=== PATIENT | male | born 1950 | race Native Hawaiian/Other Pacific Islander ===

== ENCOUNTER 2017-03-24 19:57 | Outpatient (CLI) | payer OTHER | END 2017-03-24 20:15 | disposition short-term general hospital (02) | LOC: AMB 19:57 | DX: R41.82 Altered mental status, unspecified (principal); W06.XXXA Fall from bed, initial encounter; Y92.092 Bedroom in other non-institutional residence as the place of occurrence of the external cause | CPT/HCPCS: A0425; A0427 ==

== ENCOUNTER 2017-05-01 13:14 | Outpatient (CLI) | payer OTHER | END 2017-05-01 13:35 | disposition short-term general hospital (02) | LOC: AMB 13:14 | DX: R41.82 Altered mental status, unspecified (principal) | CPT/HCPCS: A0425; A0427 ==